=== PATIENT | female | born 1945 | race Caucasian/White ===

== ENCOUNTER 2017-11-27 11:02 | Day surgery (SDC) | payer OTHER ==
[2017-11-27] MEDS ORDERED: EPINEPHrine 1 MG INJ (11:09)
[2017-11-27] MEDS ORDERED: TOBRAMYCIN 0.3% 3.5 GM OPH OINT (11:09)
[2017-11-27] MEDS ORDERED: TETRACAINE 0.5% 4 ML OPH (11:09)
[2017-11-27] MEDS ORDERED: LIDOCAINE 1%/EPI 30 ML INJ (11:09)
[2017-11-27] MEDS ORDERED: CARBACHOL 0.01% 1.5 ML OPH INJ (11:09)
[2017-11-27] MEDS: DICLOFENAC 0.1% 2.5 ML OPH OPER ×5 (12:17→12:28)
[2017-11-27] MEDS: PHENYLephrine 10% 5 ML OPH OPER ×5 (12:18→12:29)
[2017-11-27] MEDS: TROPICAMIDE 1% 3 ML OPH OPER ×5 (12:18→12:29)
[2017-11-27] MEDS: MOXIFLOXACIN 0.5% 3 ML OPH OPER ×5 (12:18→12:28)
[2017-11-27] MEDS ORDERED: SODIUM HYALURONATE 14 MG/ML SYG (12:19)
[2017-11-27] MEDS: SODIUM HYALURONATE 14 MG/ML SYG IO (12:22)
[2017-11-27] MEDS: LIDOCAINE 1%/EPI (1:100,000) (MDV) 20 ML INJ (12:22)
[2017-11-27] MEDS: LIDOCAINE 3.5% GEL TUBE OPER (12:33)
[2017-11-27] MEDS: TOBRAMYCIN 0.3% 3.5 GM OPH OINT RIGHT EYE (14:20)
[2017-11-27] MEDS ORDERED: EPHEDrine SULFATE 50 MG/5 ML SYG IV (14:30)
[2017-11-27] MEDS ORDERED: FENTAnyl 50 MCG/ML VIAL IV ×2 (14:30)
[2017-11-27] MEDS ORDERED: KETOROLAC 30 MG INJ IV (14:30)
[2017-11-27] MEDS ORDERED: OXYCODONE/ACETAMINOPHEN (5/325) TAB PO ×2 (14:30)
[2017-11-27] MEDS ORDERED: LABETALOL HCL 20MG INJ IV (14:30)
[2017-11-27] MEDS ORDERED: DIPHENHYDRAMINE 50 MG INJ IV (14:30)
[2017-11-27] MEDS ORDERED: ALBUTEROL 0.083% (NEB) 2.5 MG/3 ML AMP HHN (14:30)
[2017-11-27] MEDS ORDERED: hydrALAzine 20 MG INJ IV (14:30)
[2017-11-27] MEDS ORDERED: ONDANSETRON 4 MG INJ IV (14:30)
[2017-11-27] MEDS ORDERED: MEPERIDINE 25 MG INJ IV (14:30)
[2017-11-27] MEDS: ACETAZOLAMIDE 250 MG TAB PO (15:58)
== END 2017-11-27 16:10 | disposition home or self-care (01) ==
LOC: SDS 11:02
DX: H26.8 Other specified cataract (principal); I10 Essential (primary) hypertension; E78.5 Hyperlipidemia, unspecified
CPT/HCPCS: 66984; 71045

== ENCOUNTER 2018-01-08 07:12 | Day surgery (SDC) | payer OTHER ==
[~2018-01-08 07:12] MED LIST: LIDOCAINE 1% (MPF) 10 ML INJ; TETRACAINE 0.5% 4 ML OPH
[2018-01-08] MEDS: LIDOCAINE 1%/EPI 30 ML INJ (07:34)
[2018-01-08] MEDS: TETRACAINE 0.5% 4 ML OPH (07:35)
[2018-01-08] MEDS: EPINEPHrine 1 MG INJ (07:37)
[2018-01-08] MEDS: TOBRAMYCIN 0.3% 3.5 GM OPH OINT LEFT EYE (07:40)
[2018-01-08] MEDS: MOXIFLOXACIN 0.5% 3 ML OPH OPER (08:10)
[2018-01-08] MEDS: TROPICAMIDE 1% 3 ML OPH OPER (08:11)
[2018-01-08] MEDS: DICLOFENAC 0.1% 2.5 ML OPH OPER (08:11)
[2018-01-08] MEDS: PHENYLephrine 10% 5 ML OPH OPER (08:11)
[2018-01-08 08:20] LABS: ADD MAN DIFF? NO
[2018-01-08 08:24] LABS: ADD UMIC NO; UR ASCORBIC ACID 40 mg/dL (NEGATIVE); UR BILIRUBIN (Dip) NEGATIVE (NEGATIVE); UR BLOOD (Dip) NEGATIVE (NEGATIVE); UR CLARITY CLEAR (CLEAR); UR COLOR YELLOW (YELLOW); UR GLUCOSE (Dip) NEGATIVE (NEGATIVE); UR KETONES (Dip) NEGATIVE (NEGATIVE); UR LEUKOCYTE ESTERASE (Dip) NEGATIVE Leu/ul (NEGATIVE); UR NITRITE (Dip) NEGATIVE (NEGATIVE); UR SPECIFIC GRAVITY (Dip) 1.011 (1.003-1.030); UR TOTAL PROTEIN (Dip) NEGATIVE (NEGATIVE); UR UROBILINOGEN (Dip) NEGATIVE (NEGATIVE)
[2018-01-08 08:25] LABS: WHITE BLOOD COUNT 6.4 10^3/ul (4.8-10.8)
[2018-01-08 08:25] LABS: BASOPHIL # 0.1 10^3/ul (0.0-0.1); BASOPHILS % 0.9 % (0.0-2.0); EOSINOPHILS # 0.2 10^3/ul (0.0-0.5); EOSINOPHILS % 3.4 % (0.0-7.0); HEMATOCRIT 38.3 % (37.0-47.0); HEMOGLOBIN 12.5 g/dl (12.0-16.0); LYMPHOCYTES # 1.5 10^3/ul (0.8-2.9); LYMPHOCYTES % 23.5 % (15.0-51.0); MEAN CORPUSCULAR HEMOGLOBIN 28.7 pg (29.0-33.0); MEAN CORPUSCULAR HGB CONC 32.6 g/dl (32.0-37.0); MEAN PLATELET VOLUME 10.5 fl (7.4-10.4); MONOCYTE # 0.6 10^3/ul (0.3-0.9); MONOCYTES % 9.6 % (0.0-11.0); NEUTROPHILS % 62.4 % (39.0-77.0); PLATELET COUNT 175 10^3/UL (140-415); RED BLOOD COUNT 4.35 10^6/ul (4.20-5.40); RED CELL DISTRIBUTION WIDTH 12.9 % (11.5-14.5)
[2018-01-08 08:43] LABS: INR 0.91; PARTIAL THROMBOPLASTIN TIME 29.5 Sec (23.0-35.0); PROTIME 12.3 Sec (11.9-14.9)
[2018-01-08 08:46] LABS: ALANINE AMINOTRANSFERASE 25 IU/L (13-69); ALBUMIN 4.3 g/dl (3.3-4.9); ALBUMIN/GLOBULIN RATIO 1.13; ALKALINE PHOSPHATASE 66 IU/L (42-121); ANION GAP 8 (5-13); ASPARTATE AMINO TRANSFERASE 28 IU/L (15-46); BILIRUBIN,INDIRECT 0.9 mg/dl (0-1.1); BILIRUBIN,TOTAL 0.9 mg/dl (0.2-1.3); BLOOD UREA NITROGEN 13 mg/dl (7-20); CALCIUM 10.4 mg/dl (8.4-10.2); CARBON DIOXIDE 28 mmol/L (21-31); CHLORIDE 107 mmol/L (97-110); CREATININE 0.77 mg/dl (0.44-1.00); GLUCOSE 95 mg/dl (70-220); SODIUM 143 mmol/L (135-144); TOTAL PROTEIN 8.1 g/dl (6.1-8.1)
[2018-01-08 09:05] LABS: POTASSIUM 4.1 mmol/L (3.5-5.1)
[2018-01-08] MEDS ORDERED: MIDAZOLAM 1 MG/ML 2 ML INJ (09:14)
[2018-01-08] MEDS ORDERED: hydrALAzine 20 MG INJ IV (09:30)
[2018-01-08] MEDS ORDERED: ACETAMINOPHEN 500 MG TAB PO (09:30)
[2018-01-08] MEDS ORDERED: OXYCODONE/ACETAMINOPHEN (5/325) TAB PO (09:30)
[2018-01-08] MEDS ORDERED: ALBUTEROL 0.083% (NEB) 2.5 MG/3 ML AMP HHN (09:30)
[2018-01-08] MEDS ORDERED: ONDANSETRON 4 MG INJ IV (09:30)
[2018-01-08] MEDS ORDERED: LABETALOL HCL 20MG INJ IV (09:30)
[2018-01-08] MEDS ORDERED: ACETAMINOPHEN 325 MG TAB PO (09:30)
[2018-01-08] MEDS ORDERED: DIPHENHYDRAMINE 50 MG INJ IV (09:30)
[2018-01-08] MEDS: ACETAZOLAMIDE 250 MG TAB PO (11:10)
== END 2018-01-08 11:43 | disposition home or self-care (01) ==
LOC: SDS 07:12
DX: H26.8 Other specified cataract (principal); I10 Essential (primary) hypertension; E78.5 Hyperlipidemia, unspecified
CPT/HCPCS: 66984; 80053; 81003; 85025; 85610; 85730